=== PATIENT | male | born 1990 | race American Indian/Alaskan Native ===

== ENCOUNTER 2017-05-17 17:56 | Emergency (ER) | payer OTHER ==
[2017-05-17 18:10] VITALS: BP 111/71; PULSE 90; RESP 16; TEMP 97.9; O2SAT 97
[2017-05-17 19:20] LABS: BASO % 0.8 % (0.0-2.0); EOS # 0.3 K/uL (0.0-0.7); EOS % 5.8 % (0.0-4.0); HEMOGLOBIN 13.3 g/dL (12.0-18.0); LYMPH # 1.7 K/uL (1.0-4.3); LYMPH % 36.7 % (20.0-40.0); MEAN CELL VOLUME 95.2 fl (80.0-94.0); MEAN CORPUSCULAR HEMOGLOBIN 31.4 pg (27.0-31.0); MEAN CORPUSCULAR HGB CONC 32.9 g/dL (33.0-37.0); MEAN PLATELET VOLUME 7.7 fl (7.2-11.7); MONO # 0.5 K/uL (0.0-0.8); MONO % 11.3 % (0.0-10.0); NEUT # 2.2 K/uL (1.8-7.0); NEUT % 45.4 % (50.0-75.0); NRBC % 0.1 % (0.0-0.0); RBC 4.25 Mil/uL (4.40-5.90); RED CELL DISTRIBUTION WIDTH 12.3 % (11.5-14.5); WHITE BLOOD COUNT 4.7 K/uL (4.8-10.8)
[2017-05-17 19:43] LABS: INR 1.1 (0.9-1.2); PARTIAL THROMBOPLASTIN TIME 34.6 Seconds (25.6-37.1); PROTHROMBIN TIME 12.1 Seconds (9.8-13.1)
[2017-05-17 19:49] LABS: ALB/GLOB RATIO 1.4 (1.0-2.1); ALBUMIN 4.4 g/dL (3.5-5.0); ALT/SGPT 56 U/L (21-72); AST/SGOT 44 U/L (17-59); BLOOD UREA NITROGEN 18 mg/dl (9-20); CALCIUM 9.7 mg/dL (8.4-10.2); GFR AFRICAN-AMERICAN > 60; GFR NON-AFRICAN AMERICAN > 60
[2017-05-17] MEDS ORDERED: Sodium Chloride 0.9% 1,000 ML IV STA (19:51)
[2017-05-17 19:57] LABS: B-TYPE NATRIURETIC PEPTIDE < 11.1 pg/ml (0-450)
--- NOTE | 2017-05-17 20:05 | ED PDOC ---
HPI: Chest Pain Time Seen by Provider: 05/17/17 18:34 Chief Complaint (Nursing): Chest Pain Chief Complaint (Provider): Chest Pain History Per: Patient History/Exam Limitations: no limitations Onset/Duration Of Symptoms: Hrs (17 hours ago) Current Symptoms Are (Timing): Still Present Additional Complaint(s): 27 yo male presents to the ED complaining of a sudden onset of intermittent chest pain, onset of 17 hours ago. Patient reports feeling his heart "pounding and racing for 1-2minutes", after waking him from his sleep at 3am this morning. The pain resolved spontaneously, but started up again roughly 13 hours later, but he described it milder than before. He currently says the feeling is almost gone and this pain is associated with some shortness of breath, but he denies any cough, fever, leg swelling, or leg cramping. Of note, patient notes that he has be having generalized weakness and fatigue for the last 10 days. Past Medical History Reviewed: Historical Data, Nursing Documentation, Vital Signs Vital Signs: Last Vital Signs Temp 97.9 F 05/17/17 18:08 Pulse 90 05/17/17 18:08 Resp 16 05/17/17 18:08 BP 111/71 05/17/17 18:08 Pulse Ox 97 05/17/17 20:18 - Medical History PMH: No Chronic Diseases - Surgical History Other surgeries: chest tube insetion after suferring a punctured lung injury from playing football - Family History Family History: States: Unknown Family Hx - Social History Current smoker - smoking cessation education provided: No Ex-Smoker (has not smoked in the last 12 months): No Alcohol: Occasional Drugs: Denies - Home Medications Home Medications: Ambulatory Orders Medication Instructions Recorded Ibuprofen [Motrin Tab] 600 mg PO Q8 PRN #60 tab 05/17/17 - Allergies Allergies/Adverse Reactions: Allergies Allergy/AdvReac Type Severity Reaction Status Date / Time No Known Allergies Allergy Verified 05/17/17 18:07 Review of Systems ROS Statement: Except As Marked, All Systems Reviewed And Found Negative Constitutional: Positive for: Weakness (and fatigue). Negative for: Fever, Chills Cardiovascular: Positive for: Chest Pain, Palpitations Respiratory: Positive for: Shortness of Breath. Negative for: Cough Musculoskeletal: Negative for: Leg Pain (swelling or cramping) Physical Exam - Reviewed Nursing Documentation Reviewed: Yes Vital Signs Reviewed: Yes - Physical Exam Appears: Positive for: Non-toxic, No Acute Distress Head Exam: Positive for: ATRAUMATIC, NORMOCEPHALIC Skin: Positive for: Warm, Dry Eye Exam: Positive for: EOMI, PERRL ENT: Negative for: Pharyngeal Erythema, Tonsillar Exudate Neck: Positive for: Painless ROM, Supple Cardiovascular/Chest: Positive for: Regular Rate, Rhythm, Chest Non Tender. Negative for: Murmur, Tachycardia Respiratory: Positive for: Normal Breath Sounds. Negative for: Rales, Rhonchi, Wheezing, Respiratory Distress Gastrointestinal/Abdominal: Positive for: Soft. Negative for: Tenderness Back: Positive for: Normal Inspection. Negative for: Decreased ROM Extremity: Positive for: Normal ROM. Negative for: Calf Tenderness, Deformity Lymphatic: Negative for: Adenopathy Neurologic/Psych: Positive for: Alert. Negative for: Motor/Sensory Deficits - Laboratory Results Result Diagrams: 05/17/17 19:11 05/17/17 19:11 - ECG O2 Sat by Pulse Oximetry: 97 (RA) Pulse Ox Interpretation: Normal Medical Decision Making Medical Decision Making: Time: --18:39 Impression: --Intermittent Palpitations Differential: --electrolyte abnormality, thyroid disfunction, anemia, pericarditis Plan: --Labs --Blood type and Screen --ECG --Alcohol Serum --B-type Natriuretic --Creatine Phosphokinase --Drug Screen, Urine --magnesium --Phosphorous --TSH --Troponin I --Ed Urine Dip --Erythrocye Sedimentation Rate --Chest X-ray --Toradol 30mg IV --IV Fluids -- Reassess -- Scribe Attestation: Documented by Jose A Cameron acting as a scribe for Pamella Rowell MD. Provider Attestation: All medical record entries made by the Scribe were at my direction and personally dictated by me. I have reviewed the chart and agree that the record accurately reflects my personal performance of the history, physical exam, medical decision making, and the department course for this patient. I have also personally directed, reviewed, and agree with the discharge instructions and disposition. Disposition - Clinical Impression Clinical Impression: Chest pain - Disposition Referrals: Inderjit Angel MD [Staff Provider] - ([address] [place] [id number] ) Disposition: Routine/Home Disposition Time: 21:49 Condition: GOOD Additional Instructions: Your chest pain is most likely benign. It may be pericarditis but this also has a benign course. Please call Dr Angel (Cardiology) for reevaluation in 2-3 days. Do not restart exercise program until you follow up with Cardiology. Return to ER for worsening symptoms. Prescriptions: Ibuprofen [Motrin Tab] 600 mg PO Q8 PRN #60 tab PRN Reason: Pain, Moderate (4-7) Instructions: Chest Pain (ED), Acute Pericarditis (ED)
--- NOTE | 2017-05-18 08:38 | RAD ---
HISTORY: chest pain COMPARISON: No prior. FINDINGS: LUNGS: No active pulmonary disease. PLEURA: No significant pleural effusion identified, no pneumothorax apparent. CARDIOVASCULAR: Normal. OSSEOUS STRUCTURES: No significant abnormalities. VISUALIZED UPPER ABDOMEN: Normal. OTHER FINDINGS: None. IMPRESSION: No active disease.
--- NOTE | 2017-05-19 10:22 | CARD ---
APPROVED REPORT EKG Measurement Heart [id number] <Conclusion> Normal sinus rhythm Possible Acute pericarditis Abnormal ECG
== END 2017-05-17 22:03 | disposition home or self-care (01) ==
LOC: H.ER 17:56
DX: R07.9 Chest pain, unspecified (principal)
CPT/HCPCS: 71045; 80053; 80320; 82550; 83735; 83880; 84100; 84443; 84484; 85025; 85610; 85651; 85730; 86850; 86900; 87804; 93005; 96360; 99283; J1885; J7040